=== PATIENT | female | born 1970 | race Caucasian/White ===

== ENCOUNTER 2016-12-26 23:26 | Emergency (ER) | payer OTHER ==
[~2016-12-26] VITALS: Ht 170.2 cm; Wt 85.9 kg
[~2016-12-26 23:26] MED LIST: PROC-14 PO; RIZA10TA24 PO; SERT50TA12 PO; TOPI25TA64 PO
--- OUTSIDE RECORDS SUMMARY | 2016-12-26 23:30 | XMS REPORT | Continuity of Care Document ---
Author Author [facility] Organization [facility] Address Unknown Phone Unavailable Support Name Relationship Address Phone CUATE VASQUEZ DO Caregiver [address] [place] [address] CARLOS GUERRA MD Caregiver [address] [place] [address] [address] [place] [facility] SEGUN PATEL Next Of Kin [address] [place], [place] [id number] Insurance Providers Payer Name Policy Number Subscriber Name Relationship CIGNA [id number] Padmini Patel 18 Self Advance Directives Directive Response Recorded Date/Time Advanced Directives Type None 04/02/14 5:36pm Ordered Resuscitation Status Full Code 04/02/14 4:38pm Chief Complaint and Reason for Visit Chief Complaint OVERDOSE,SUICIDAL IDEATION Reason for Visit Migraine headache Suicidal ideation Overdose Suicidal ideation Suicide attempt by drug ingestion Problems Medical Problems Problem Onset Date Status Migraine headache Unknown Active Migraine headache Unknown Active Migraine headache Unknown Active Suicidal ideation Unknown Active Overdose Unknown Active Suicidal ideation Unknown Active Suicide attempt by drug ingestion Unknown Active Medications Medication Dose Route Sig Days/Qty Instructions Order Date Discontinued Date Status [Maxalt] NEEDED 03/08/10 12/27/12 Discontinued Butalb/Acetaminophen/Caffeine NEEDED 10/03/10 12/27/12 Discontinued Gabapentin 600 Mg PO TWICE A DAY 4 TABS 12/27/12 Active Rizatriptan Benzoate 10 Mg PO NEEDED 02/13/14 Active [Citalopram Hbr20 M1] 20 Mg PO BEDTIME 03/25/14 Active [Ixpyicfvmd73 M2] 25 Mg PO 03/25/14 Active [Estrogen Patch] Unknown Dose 04/02/14 Active Social History Social History Problem Response Recorded Date/Time Smoking Status Former smoker 02/13/2014 8:19am When did patient STOP smoking? 200504/02/2014 5:37pm Hx Substance Use No 04/02/2014 3:48pm Hx Alcohol Use Y BEER MONTHLY 04/02/2014 3:48pm Has the pt used tobacco in the last 12 months No 04/02/2014 5:37pm Query Response Start Date Stop Date Smoking Status Never smoker Hospital Discharge Instructions Instructions: Care Instructions: Reason for Hospitalization: Suicide attempt by overdose I was in the hospital because (patient own words): "I took too many pills" Discharge Diet: Regular Discharge Activity: As tolerated Follow Up Appointments: Pt to be followed by Chris Gordon Condition at time of discharge: Good Condition at time of discharge: Good Condition at time of discharge: Good see patient instructions Care Plan Discharge Patient: Patient Instructions: see patient instructions Plan of Care Discharge Date 04/03/14 5:00pm Disposition 65 TO [facility] Prescriptions See Medications Section Functional Status Query Response Date Recorded Physical Hygiene Self April 03, 2014 4:45pm Disabilities None February 13, 2014 8:19am Devices Used None April 03, 2014 4:45pm Dressing Self April 03, 2014 4:45pm Ambulation Self February 13, 2014 8:19am Diet Self April 03, 2014 4:45pm Mental Status Alert February 13, 2014 8:47am Disabilities None February 13, 2014 8:19am Devices Used None April 03, 2014 4:45pm Physical Hygiene Self April 03, 2014 4:45pm Dressing Self April 03, 2014 4:45pm Ambulation Self February 13, 2014 8:19am Diet Self April 03, 2014 4:45pm Allergies, Adverse Reactions, Alerts Allergen Type Severity Reaction Status Last Updated No Known Allergies NO KNOWN ALLERGIES Active 04/02/14 Immunizations Name Given Type Hx Influenza Vaccination Y 05/25 Historical Hx Pneumococcal Vaccination No Historical Hx Influenza Vaccination Y 05/25 Historical Vital Signs Acute Vital Signs Vital Response Date/Time Temperature (Fahrenheit) 98.2 deg F (96.8 - 99.1) Temperature (Calculated Celsius) 36.52637 degrees C (36.0 - 37.3) Temperature Source Temporal Pulse Rate (adult) 72 bpm (60 - 100) Respiratory Rate 16 breaths/min (10 - 20) O2 Sat by Pulse Oximetry 100 % (90 - 100) Oxygen Delivery Method Room Air Blood Pressure 110/61 mm Hg Blood Pressure Source Automatic Cuff Height 5 ft 7 in Weight 173 lb Body Mass Index 27.0 kg/m^2 Results Test Source Date Result Interp. Ref. Range Comments Acetaminophen Level April 02, 2014 3:30pm < 10 UG/ML L 10-30 TOXIC <4 HR POST INGESTION: >150 MG/L;TOXIC <12 HR POST INGESTION: >50 MG/L Activated Partial Thromboplast Time December 27, 2012 9:53am 30.2 SEC N 24- 36 Alanine Aminotransferase (ALT/SGPT) April 02, 2014 3:30pm 34 U/L N 9- 52 Albumin April 02, 2014 3:30pm 3.7 G/DL N 3.5-5.0 Albumin/Globulin Ratio April 02, 2014 3:30pm 1.5 RATIO N 1.1-2.2 Alcohol, Quantitative April 02, 2014 3:30pm <10 MG/DL - Alkaline Phosphatase April 02, 2014 3:30pm 67 U/L N 38-126 Anion Gap April 03, 2014 4:20am 10 MEQ/L N 5-15 Aspartate Amino Transf (AST/SGOT) April 02, 2014 3:30pm 16 U/L N 14-36 BUN/Creatinine Ratio April 03, 2014 4:20am 10 RATIO N 6-26 Basophils # (Auto) April 03, 2014 4:20am 0.0 T/MM3 N 0-0.2 Basophils (%) (Auto) April 03, 2014 4:20am 0.5 % N 0-2 Blood Urea Nitrogen April 03, 2014 4:20am 9.0 MG/DL DN 7-17 Calcium Level April 03, 2014 4:20am 8.3 MG/DL L 8.4-10.2 Calculated Osmolality April 03, 2014 4:20am 271 MOSM/KG N 261-280 Carbon Dioxide Level April 03, 2014 4:20am 23 MEQ/L N 22-30 Chemistry Specimen Hemolysis April 03, 2014 4:20am 31 H 0-25 0-25: No Hemolysis.26-70: Slight Hemolysis - can falsely elevate K and Urine Protein. 71-285: Moderate Hemolysis - can falsely elevate K, Troponin I, CA 19-9, PTH, CSF GLucose, and Urine Protein, and can falsely decrease Phenytoin. 286-999: Gross Hemolysis - can falsely elevate K, Troponin I, CA 19-9, PTH, CSF Glucose, and Urine Protine, and can falsely decrease Phenytoin. Recommend specimen recollection. Chloride Level April 03, 2014 4:20am 109 MEQ/L H 98-107 Creatinine April 03, 2014 4:20am 0.9 MG/DL N 0.7-1.2 Eosinophils # (Auto) April 03, 2014 4:20am 0.2 T/MM3 N 0-0.5 Eosinophils (%) (Auto) April 03, 2014 4:20am 2.0 % N 0-4 Globulin April 02, 2014 3:30pm 2.5 G/DL N 2.4-3.6 Glomerular Filtration Rate Calc April 03, 2014 4:20am 68 - Glucose Level April 03, 2014 4:20am 89 MG/DL N 65-110 Hematocrit April 03, 2014 4:20am 45.6 % N 36-46 Hemoglobin April 03, 2014 4:20am 15.4 GM/DL N 12-16 Icterus Index April 03, 2014 4:20am < 2 0-7 Immature Granulocyte # (Auto) April 03, 2014 4:20am 0.02 T/MM3 N 0.00- 0.03 Immature Granulocyte % (Auto) April 03, 2014 4:20am 0.2 % N 0.0-0.5 Lab Scanned Report April 02, 2014 4:35pm [facility] [id number] - Lymphocytes # (Auto) April 03, 2014 4:20am 2.5 T/MM3 N 1-4.8 Lymphocytes (%) (Auto) April 03, 2014 4:20am 27.8 % N 23-45 Magnesium Level December 27, 2012 9:53am 2.0 MG/DL N 1.6-2.3 Mean Corpuscular Hemoglobin April 03, 2014 4:20am 29.8 UUG N 26-34 Mean Corpuscular Hemoglobin Concent April 03, 2014 4:20am 33.8 GM/DL N 31-37 Mean Corpuscular Volume April 03, 2014 4:20am 88.2 UM3 N 80-100 Mean Platelet Volume April 03, 2014 4:20am 11.5 UM3 N 9.4-12.4 Monocytes # (Auto) April 03, 2014 4:20am 0.9 T/MM3 H 0-0.8 Monocytes (%) (Auto) April 03, 2014 4:20am 9.6 % H 0-9.0 Neutrophils # (Auto) April 03, 2014 4:20am 5.3 T/MM3 N 1.8-7.7 Neutrophils (%) (Auto) April 03, 2014 4:20am 59.9 % N 33-66 Platelet Count April 03, 2014 4:20am 233 T/MM3 N 130-400 Potassium Level April 03, 2014 4:20am 4.2 MEQ/L N 3.6-5 Prothromb Time International Ratio December 27, 2012 9:53am 0.85 L 0.86-1.10 THERAPUTIC RANGE=2.00-3.00 FOR ANTI-THROMBOSIS THERAPUTIC RANGE=2.50-3.50 FOR IMPLANTED VALVE RDW Standard Deviation April 03, 2014 4:20am 40.1 FL N 36.9-50.2 Red Blood Count April 03, 2014 4:20am 5.17 M/MM3 N 4.00-5.20 Salicylates Level April 02, 2014 3:30pm < 1.0 MG/DL L 2-20 Sodium Level April 03, 2014 4:20am 142 MEQ/L N 134-144 Thyroid Stimulating Hormone (TSH) April 03, 2014 4:20am 0.80 MIU/L N 0.47-4.68 Total Bilirubin April 02, 2014 3:30pm 0.70 MG/DL N 0.20-1.30 Total Protein April 02, 2014 3:30pm 6.2 G/DL L 6.3-8.2 Troponin I April 02, 2014 3:30pm < 0.012 ng/ml 0-0.12 Turbidity April 03, 2014 4:20am < 20 0-20 Urinalysis Comment April 02, 2014 4:15pm Microscopic not ind. - Has specimen been collected/obtained? Y Urine Bilirubin April 02, 2014 4:15pm Negative - Has specimen been collected/obtained? Y Urine Blood April 02, 2014 4:15pm Negative - Has specimen been collected/obtained? Y Urine Collection Type April 02, 2014 4:15pm Cleancatch-midstream - Has specimen been collected/obtained? Y Urine Color April 02, 2014 4:15pm Yellow - Has specimen been collected/obtained? Y Urine Glucose (UA) April 02, 2014 4:15pm Negative - Has specimen been collected/obtained? Y Urine Ketones April 02, 2014 4:15pm Negative - Has specimen been collected/obtained? Y Urine Leukocyte Esterase April 02, 2014 4:15pm Negative - Has specimen been collected/obtained? Y Urine Microscopic Not Indicated March 08, 2010 1:54am Not indicated - Has specimen been collected/obtained? Y Urine Nitrite April 02, 2014 4:15pm Negative - Has specimen been collected/obtained? Y Urine Protein April 02, 2014 4:15pm Negative - Has specimen been collected/obtained? Y Urine Specific [place] April 02, 2014 4:15pm 1.010 L - Has specimen been collected/obtained? Y Urine Turbidity April 02, 2014 4:15pm Clear - Has specimen been collected/obtained? Y Urine Urobilinogen April 02, 2014 4:15pm 0.2 EU/DL - Has specimen been collected/obtained? Y Urine pH April 02, 2014 4:15pm 6.0 - Has specimen been collected/ obtained? Y White Blood Count April 03, 2014 4:20am 8.9 T/MM3 N 4.5-11.0 Procedures No known history of procedures. Encounters Encounter Location Date/Time Discharged Inpatient [facility] 04/02/14 4:47pm Departed Emergency Room [facility] 03/25/14 2:08am Departed Emergency Room [facility] 02/13/14 7:57am Recent Diagnosis Migraine headache Suicidal ideation Overdose Suicidal ideation Suicide attempt by drug ingestion
--- OUTSIDE RECORDS SUMMARY | 2016-12-26 23:30 | XMS REPORT | Continuity of Care Document ---
Author Author [facility] Organization [facility] Address Unknown Phone Unavailable Support Name Relationship Address Phone GIUSEPPE APARICIO MD Caregiver [address] [place] [address] [place] [address] NICOLASAASHLEIGH Caregiver [address] [place] [address] SEGUN PATEL Next Of Kin [address] [place] [address] Insurance Providers Payer Name Policy Number Subscriber Name Relationship [employer]IG[employer] [id number] Padmini Patel 18 Self Advance Directives Directive Response Recorded Date/Time Advanced Directives Type None 03/25/14 3:05am Problems Medical Problems Problem Onset Date Status Migraine headache Unknown Active Migraine headache Unknown Active Migraine headache Unknown Active Medications Medication Dose Route Sig Days/Qty Instructions Order Date Discontinued Date Status [Maxalt] NEEDED 03/08/10 12/27/12 Discontinued Butalb/Acetaminophen/Caffeine NEEDED 10/03/10 12/27/12 Discontinued Gabapentin 600 Mg PO TWICE A DAY 4 TABS 12/27/12 Active Rizatriptan Benzoate 10 Mg PO NEEDED 02/13/14 Active [Citalopram Hbr20 M1] 20 Mg PO BEDTIME 03/25/14 Active [Hxrischnhy17 M2] 25 Mg PO 03/25/14 Active Social History Social History Problem Response Recorded Date/Time Smoking Status Former smoker 02/13/2014 8:19am Hx Substance Use No 03/25/2014 3:25am Hx Alcohol Use Y BEER MONTHLY 03/25/2014 3:25am Has the pt used tobacco in the last 12 months No 12/27/2012 11:00am Query Response Start Date Stop Date Smoking Status Never smoker Hospital Discharge Instructions No hospital discharge instructions. Plan of Care No plan of care. Functional Status Query Response Date Recorded Physical Hygiene Self March 25, 2014 3:25am Disabilities None February 13, 2014 8:19am Devices Used None March 25, 2014 3:25am Dressing Self March 25, 2014 3:25am Ambulation Self February 13, 2014 8:19am Diet Self March 25, 2014 3:25am Mental Status Alert February 13, 2014 8:47am Disabilities None February 13, 2014 8:19am Devices Used None March 25, 2014 3:25am Physical Hygiene Self March 25, 2014 3:25am Dressing Self March 25, 2014 3:25am Ambulation Self February 13, 2014 8:19am Diet Self March 25, 2014 3:25am Allergies, Adverse Reactions, Alerts Allergen Type Severity Reaction Status Last Updated No Known Allergies NO KNOWN ALLERGIES Active 03/25/14 Immunizations Name Given Type Hx Influenza Vaccination Y 05/25 Historical Hx Pneumococcal Vaccination No Historical Hx Influenza Vaccination Y 05/25 Historical Vital Signs Acute Vital Signs Vital Response Date/Time Temperature (Fahrenheit) 97.3 deg F (96.8 - 99.1) Temperature (Calculated Celsius) 36.25303 degrees C (36.0 - 37.3) Pulse Rate (adult) 78 bpm (60 - 100) Respiratory Rate 13 breaths/min (10 - 20) O2 Sat by Pulse Oximetry 99 % (90 - 100) Blood Pressure 133/76 mm Hg Height 5 ft 7 in Weight 165 lb Body Mass Index 25.0 kg/m^2 Results Test Source Date Result Interp. Ref. Range Comments Activated Partial Thromboplast Time December 27, 2012 9:53am 30.2 SEC N 24- 36 Alanine Aminotransferase (ALT/SGPT) December 27, 2012 9:53am 26 U/L N 9-52 Albumin December 27, 2012 9:53am 4.1 G/DL N 3.5-5.0 Albumin/Globulin Ratio December 27, 2012 9:53am 1.5 RATIO N 1.1-2.2 Alkaline Phosphatase December 27, 2012 9:53am 62 U/L N 38-126 Anion Gap December 27, 2012 9:53am 11 MEQ/L N 5-15 Aspartate Amino Transf (AST/SGOT) December 27, 2012 9:53am 17 U/L N 14-36 BUN/Creatinine Ratio December 27, 2012 9:53am 14 RATIO N 6-26 Basophils # (Auto) December 27, 2012 9:53am 0.0 T/MM3 N 0-0.2 Basophils (%) (Auto) December 27, 2012 9:53am 0.4 % N 0-2 Blood Urea Nitrogen December 27, 2012 9:53am 11.0 MG/DL N 7-17 Calcium Level December 27, 2012 9:53am 9.0 MG/DL N 8.4-10.2 Calculated Osmolality December 27, 2012 9:53am 272 MOSM/KG N 261-280 Carbon Dioxide Level December 27, 2012 9:53am 25 MEQ/L N 22-30 Chloride Level December 27, 2012 9:53am 106 MEQ/L N 98-107 Creatinine December 27, 2012 9:53am 0.8 MG/DL N 0.7-1.2 Eosinophils # (Auto) December 27, 2012 9:53am 0.1 T/MM3 N 0-0.5 Eosinophils (%) (Auto) December 27, 2012 9:53am 1.6 % N 0-4 Globulin December 27, 2012 9:53am 2.8 G/DL N 2.4-3.6 Glucose Level December 27, 2012 9:53am 92 MG/DL N 65-110 Hematocrit December 27, 2012 9:53am 46.4 % H 36-46 Hemoglobin December 27, 2012 9:53am 15.7 GM/DL N 12-16 Lymphocytes # (Auto) December 27, 2012 9:53am 3.0 T/MM3 N 1-4.8 Lymphocytes (%) (Auto) December 27, 2012 9:53am 41.1 % N 23-45 Magnesium Level December 27, 2012 9:53am 2.0 MG/DL N 1.6-2.3 Mean Corpuscular Hemoglobin December 27, 2012 9:53am 28.8 UUG N 26-34 Mean Corpuscular Hemoglobin Concent December 27, 2012 9:53am 33.8 GM/DL N 31- 37 Mean Corpuscular Volume December 27, 2012 9:53am 85.1 UM3 N 80-100 Mean Platelet Volume December 27, 2012 9:53am 11.2 UM3 N 9.4-12.4 Monocytes # (Auto) December 27, 2012 9:53am 0.7 T/MM3 N 0-0.8 Monocytes (%) (Auto) December 27, 2012 9:53am 9.6 % H 0-9.0 Neutrophils # (Auto) December 27, 2012 9:53am 3.4 T/MM3 N 1.8-7.7 Neutrophils (%) (Auto) December 27, 2012 9:53am 47.0 % N 33-66 Platelet Count December 27, 2012 9:53am 226 T/MM3 N 130-400 Potassium Level December 27, 2012 9:53am 4.2 MEQ/L N 3.6-5 Prothromb Time International Ratio December 27, 2012 9:53am 0.85 L 0.86-1.10 THERAPUTIC RANGE=2.00-3.00 FOR ANTI-THROMBOSIS THERAPUTIC RANGE=2.50-3.50 FOR IMPLANTED VALVE RDW Standard Deviation December 27, 2012 9:53am 39.3 FL N 36.9-50.2 Red Blood Count December 27, 2012 9:53am 5.45 M/MM3 H 4.00-5.20 Sodium Level December 27, 2012 9:53am 142 MEQ/L N 134-144 Thyroid Stimulating Hormone (TSH) December 27, 2012 9:53am 0.87 MIU/L N 0.47- 4.68 Total Bilirubin December 27, 2012 9:53am 0.70 MG/DL N 0.20-1.30 Total Protein December 27, 2012 9:53am 6.9 G/DL N 6.3-8.2 Troponin I December 27, 2012 9:53am < 0.012 ng/ml 0-0.12 Urine Amphetamines Screen December 27, 2012 3:33pm Negative NG/ML - Urine Barbiturates Screen December 27, 2012 3:33pm Negative NG/ML - Urine Benzodiazepines Screen December 27, 2012 3:33pm Negative NG/ML - Urine Bilirubin December 27, 2012 3:33pm Negative - Has specimen been collected/obtained? Y Urine Blood December 27, 2012 3:33pm Negative - Has specimen been collected/obtained? Y Urine Cocaine Screen December 27, 2012 3:33pm Negative NG/ML - Urine Collection Type December 27, 2012 3:33pm Voided - Has specimen been collected/obtained? Y Urine Color December 27, 2012 3:33pm Yellow - Has specimen been collected/ obtained? Y Urine Glucose (UA) December 27, 2012 3:33pm Negative - Has specimen been collected/obtained? Y Urine Ketones December 27, 2012 3:33pm Negative - Has specimen been collected/obtained? Y Urine Leukocyte Esterase December 27, 2012 3:33pm Negative - Has specimen been collected/obtained? Y Urine Nitrite December 27, 2012 3:33pm Negative - Has specimen been collected/obtained? Y Urine Opiates Screen December 27, 2012 3:33pm Negative NG/ML - Urine Protein December 27, 2012 3:33pm Negative - Has specimen been collected/obtained? Y Urine Specific [place] December 27, 2012 3:33pm 1.010 L - Has specimen been collected/obtained? Y Urine Tricyclic Antidepressants December 27, 2012 3:33pm Negative NG/ML - Urine Turbidity December 27, 2012 3:33pm Clear - Has specimen been collected/obtained? Y Urine Urobilinogen December 27, 2012 3:33pm Normal EU/DL - Has specimen been collected/obtained? Y Urine pH December 27, 2012 3:33pm 7.0 - Has specimen been collected/ obtained? Y White Blood Count December 27, 2012 9:53am 7.3 T/MM3 N 4.5-11.0 Lab Scanned Report December 27, 2012 9:14pm [facility] [id number] - Urine Methadone Screen December 27, 2012 3:33pm Negative NG/ML - Urine Cannabinoids Screen December 27, 2012 3:33pm Negative NG/ML - Glomerular Filtration Rate Calc December 27, 2012 9:53am 79 - Immature Granulocyte # (Auto) December 27, 2012 9:53am 0.02 T/MM3 N 0.00- 0.03 Immature Granulocyte % (Auto) December 27, 2012 9:53am 0.3 % N 0.0-0.5 Urine Microscopic Not Indicated March 08, 2010 1:54am Not indicated - Has specimen been collected/obtained? Y Procedures No known history of procedures. Encounters Encounter Location Date/Time Departed Emergency Room [facility] 03/25/14 2:08am Departed Emergency Room [facility] 02/13/14 7:57am Recent Diagnosis
--- OUTSIDE RECORDS SUMMARY | 2016-12-26 23:31 | XMS REPORT | Referral Summary ---
Author Author [facility] Organization [facility] Address Unknown Phone Unavailable Care Team Providers Care Barometers Calibrator Name Role Phone Radha Mckee Primary Care Physician [phone] Encounter VC Date(s): 10/07/16 - 10/07/16 [facility] [address] [place] [id number] Discharge Diagnosis: Migraine Discharge Disposition: 01-Home or Self Care Attending Physician: Elvis Read PA-C Admitting Physician: Elvis Read PA-C Vital Signs Most recent to 1 oldest [Reference Range]: Temperature Tympanic 36.8 degC [36.6-38.1 degC] (10/07/16 5:55 PM) Peripheral Pulse 83 bpm Rate [60-100 bpm] (10/07/16 5:55 PM) Blood Pressure 148/86 mmHg [90-140/60-90 mmHg] *HI* (10/07/16 5:55 PM) SpO2 97 % (10/07/16 5:55 PM) Problem List Condition Effective Dates Status Health Status Informant Alteration in Active nutrition(Confirmed) 1 Appendicitis, Active acute(Confirmed) Fluid volume Active deficit(Confirmed)2 Headache-Migraines(C Active onfirmed) Headache(Confirmed) Active Hyperlipidemia(Confi Active rmed) Intractable Active headache(Confirmed) Migraine(Confirmed) Active Migraine(Confirmed) Active Obesity(Confirmed) Active patient Migraine with Active patient intractable migraine(Confirmed) 1Problem added automatically by system based on initiation of Alteration in Nutrition Plan of Care 2Problem added automatically by system based on initiation of Fluid Deficit Plan of Care Allergies, Adverse Reactions, Alerts Substance Reaction Severity Status azithromycin Active doxycycline Active traZODone anaphylaxis Active Medications Botox 200 units injection 200 units, IntraMuscular, q3mo, # 1 Each, 0 Refill(s) Start Date: 09/25/15 Status: Ordered cyclobenzaprine 10 mg oral tablet 10 mg 1 tabs, Oral, TID, as needed for spasm, # 30 tabs, 0 Refill(s), Pharmacy: [id number], 1 tabs Oral TID,PRN:as needed for spasm Start Date: 08/10/15 Status: Ordered mirtazapine 30 mg oral tablet See Instructions, TAKE ONE TABLET BY MOUTH AT BEDTIME, # 30 tabs, 2 Refill(s), eRx: [id number] Start Date: 08/19/16 Status: Ordered Miscellaneous DME DME Item 100% FIO2 via 12 L Non-Rebreather Mask for 15 minutes. DX: Migraines Patient to have done at [place] [facility], See Instructions, # 1 Each , 0 Refill(s), other reason (Rx), Supply Start Date: 04/01/14 Status: Ordered naproxen 500 mg oral tablet 500 mg 1 tabs, Oral, BID, # 60 tabs, 2 Refill(s), Pharmacy: [id number], 1 tabs Oral BID Start Date: 08/09/16 Status: Ordered rizatriptan 10 mg oral tablet, disintegrating See Instructions, DISSOLVE ONE TABLET IN MOUTH ONCE DAILY, MAY REPEAT DOSE EVERY 2 HOURS, # 9 tabs, 1 Refill(s), Pharmacy: [facility], DISSOLVE ONE TABLET IN MOUTH ONCE DAILY, MAY REPEAT DOSE EVERY 2 HOURS Start Date: 08/09/16 Status: Ordered topiramate 25 mg oral tablet See Instructions, TAKE TWO TABLETS BY MOUTH ONCE DAILY AT BEDTIME, # 60 tabs, 2 Refill(s), eRx: [id number], TAKE TWO TABLETS BY MOUTH ONCE DAILY AT BEDTIME Start Date: 06/06/16 Status: Ordered Results No data available for this section Immunizations Given and Recorded Vaccine Date Status Refusal Reason influenza virus vaccine, H1N1, inactivat 07/21/09 Given influenza virus vaccine, live 06/11/10 Given Procedures Procedure Date Related Diagnosis Body Site Appendectomy Hysterectomy Social History Social History Type Response Smoking Status Former smoker; Type: Cigarettes; Started at age: 24; Stopped at age: 36 Assessment and Plan Extracted from: Title: migraine Author: Elvis Read PA-C Date: 10/07/16 Assessment/Plan Migraine Was treated with [id number] mgpatient was monitored 20 minutes after the injections; vital signs repeated stable upon discharge. Recommend rest. FU with PCP if not improving, worsening symptoms, or as needed. Patient left in stable condition.
--- OUTSIDE RECORDS SUMMARY | 2016-12-26 23:31 | XMS REPORT | Referral Summary ---
Author Author [facility] Organization [facility] Address Unknown Phone Unavailable Care Team Providers Care Head Of Digital Advertising & Integration Name Role Phone Radha Mckee Primary Care Physician [phone] Encounter Date(s): 07/15/16 - 07/15/[address] [facility] [address] [facility] [address] [place], [place] [address] [place] Discharge Disposition: 01-Home or Self Care Attending Physician: Sage Sales MD Admitting Physician: Sage Sales MD Referring Physician: Sage Sales MD Vital Signs No data available for this section Problem List Condition Effective Dates Status Health Status Informant Alteration in Active nutrition(Confirmed) 1 Appendicitis, Active acute(Confirmed) Fluid volume Active deficit(Confirmed)2 Headache-Migraines(C Active onfirmed) Headache(Confirmed) Active Hyperlipidemia(Confi Active rmed) Intractable Active headache(Confirmed) Migraine(Confirmed) Active Migraine(Confirmed) Active Migraine with Active patient intractable migraine(Confirmed) 1Problem [...] spasm, # 30 tabs, 0 Refill(s), Pharmacy: [id number], 1 tabs Oral TID,PRN:as needed for spasm Start Date: 08/10/15 Status: Ordered mirtazapine 30 mg oral tablet See Instructions, TAKE ONE TABLET BY MOUTH AT BEDTIME, # 30 tabs, 2 Refill(s), eRx: [id number], TAKE ONE TABLET BY MOUTH AT BEDTIME Start Date: 05/02/16 Status: Ordered Miscellaneous DME DME Item 100% FIO2 via 12 L Non-Rebreather Mask for 15 minutes. DX: Migraines Patient to have done at [place] [facility], See Instructions, # 1 Each , 0 Refill(s), other reason (Rx), Supply Start Date: 04/01/14 Status: Ordered naproxen 500 mg oral tablet 500 mg 1 tabs, Oral, BID, # 60 tabs, 2 Refill(s), Pharmacy: [id number], 1 tabs Oral BID Start Date: 01/08/16 Status: Ordered rizatriptan 10 mg oral tablet, disintegrating See Instructions, DISSOLVE ONE TABLET IN MOUTH ONCE DAILY, MAY REPEAT DOSE EVERY 2 HOURS, # 9 tabs, eRx: [id number], DISSOLVE ONE TABLET IN MOUTH ONCE DAILY, MAY REPEAT DOSE EVERY 2 HOURS Start Date: 12/18/15 Status: Ordered topiramate 25 mg oral tablet See Instructions, TAKE TWO TABLETS BY MOUTH ONCE DAILY AT BEDTIME, # 60 tabs, 2 Refill(s), eRx: [id number], TAKE TWO TABLETS BY MOUTH ONCE DAILY AT BEDTIME Start Date: 06/06/16 Status: Ordered Zofran 8 mg oral tablet 1 tabs, Oral, q8hr, as needed for nausea/vomiting, # 10 tabs, 0 Refill(s), Pharmacy: [id number], 1 tabs Oral q8hr,PRN:as needed for nausea/ vomiting Start Date: 03/31/14 Status: Ordered Results No data available for this section Immunizations Vaccine Date Refusal Reason influenza virus vaccine, H1N1, inactivat 07/21/09 influenza virus vaccine, live 06/11/10 Procedures Procedure Date Related Diagnosis Body Site Appendectomy Hysterectomy Social History Social History Type Response Smoking Status Former smoker; Type: Cigarettes; Started at age: 24; Stopped at age: 36 Assessment and Plan No data available for this section
--- OUTSIDE RECORDS SUMMARY | 2016-12-26 23:31 | XMS REPORT | Continuity of Care Document ---
Author Author [facility] Address Unknown Phone Unavailable Allergies Medications Problems Date Dx Coded Attending Type Code Diagnosis Diagnosed By 09/16/2016 ANAMIKA RAMOS G43.909 Migraine, unsp, not intractable, without status migrainosus Procedures Code [place] [address] THER/PROPH/DIAG INJ SC/IM ANAMIKA RAMOS 09/16/2016 [id number] OFFICE/OUTPATIENT VISIT NEW ANAMIKA RAMOS 09/16/2016 [id number] KETOROLAC TROMETHAMINE INJ ANAMIKA RAMOS 09/16/2016 [id number] PROMETHAZINE HCL INJECTION ANAMIKA RAMOS 09/16/2016 Results Encounters ACCT No. Visit Date/Time Discharge Status Pt. Type Provider Facility Loc./Unit Complaint [id number] 09/16/2016 15:00:00 09/16/2016 15 :00:00 DIS Outpatient ANAMIKA RAMOS [facility] OTHER
--- OUTSIDE RECORDS SUMMARY | 2016-12-26 23:31 | XMS REPORT | Continuity of Care Document ---
Author Author [facility] Organization [facility] Address Unknown Phone Unavailable Support Name Relationship Address Phone ASHLEIGH BALDWIN Caregiver [address] [place], [place] [id number] KEAGAN PURDY MD Caregiver [address] [place] [address] [place] [phone] SEGUN PATEL Next Of Kin [address] [place] [address] Insurance Providers Payer Name Policy Number Subscriber Name Relationship MARISELANA [id number] Padmini Patel 18 Self Problems Medical Problems Problem Onset Date Status Migraine headache Unknown Active Medications Medication Dose Route Sig Days/Qty Instructions Order Date Discontinued Date Status [Maxalt] NEEDED 03/08/10 12/27/12 Discontinued Butalb/Acetaminophen/Caffeine NEEDED 10/03/10 12/27/12 Discontinued Gabapentin 300 Mg PO BEDTIME 4 TABS 12/27/12 Active Social History Social History Problem Response Recorded Date/Time Smoking Status Former smoker 02/13/2014 8:19am Hx Alcohol Use Y BEER MONTHLY 02/13/2014 8:19am Has the pt used tobacco in the last 12 months No 12/27/2012 11:00am Query Response Start Date Stop Date Smoking Status Never smoker Hospital Discharge Instructions No hospital discharge instructions. Plan of Care No plan of care. Functional Status Query Response Date Recorded Physical Hygiene Self February 13, 2014 8:19am Disabilities None February 13, 2014 8:19am Devices Used None February 13, 2014 8:19am Dressing Self February 13, 2014 8:19am Ambulation Self February 13, 2014 8:19am Diet Self February 13, 2014 8:19am Mental Status Alert February 13, 2014 8:47am Disabilities None February 13, 2014 8:19am Devices Used None February 13, 2014 8:19am Physical Hygiene Self February 13, 2014 8:19am Dressing Self February 13, 2014 8:19am Ambulation Self February 13, 2014 8:19am Diet Self February 13, 2014 8:19am Allergies, Adverse Reactions, Alerts Allergen Type Severity Reaction Status Last Updated No Known Allergies NO KNOWN ALLERGIES Active 02/13/14 Immunizations Name Given Type Hx Influenza Vaccination Y 05/25 Historical Hx Pneumococcal Vaccination No Historical Hx Influenza Vaccination Y 05/25 Historical Vital Signs Acute Vital Signs Vital Response Date/Time Temperature (Fahrenheit) 98.4 deg F (96.8 - 99.1) Temperature (Calculated Celsius) 36.37731 degrees C (36.0 - 37.3) Pulse Rate (adult) 75 bpm (60 - 100) Respiratory Rate 16 breaths/min (10 - 20) O2 Sat by Pulse Oximetry 98 % (90 - 100) Blood Pressure 113/79 mm Hg Height 5 ft 7 in Weight 176 lb Body Mass Index 27.0 kg/m^2 Results [...] Has specimen been collected/obtained? Y Urine Specific [place] December 27, 2012 3:33pm 1.010 L - [...] Report December 27, 2012 9:14pm [facility]FER[facility] [id number] - Urine Methadone Screen December 27, 2012 [...] Encounters Encounter Location Date/Time Departed Emergency Room [facility] 02/13/14 7:57am Recent Diagnosis
--- OUTSIDE RECORDS SUMMARY | 2016-12-26 23:31 | XMS REPORT | Continuity of Care Document ---
Author Author [facility] Organization [facility] Address Unknown Phone Unavailable Support Name Relationship Address Phone KEAGAN PURDY MD Caregiver [address] [place] [address] [place] [phone] SEGUN PATEL Next Of Kin [address] [place] [id number] Insurance Providers Payer Name Policy Number Subscriber Name Relationship VAMSHI [id number] Padmini Patel 18 Self Advance Directives Directive Response Recorded Date/Time Advanced Directives Type None 05/30/14 9:22pm Chief Complaint and Reason for Visit Chief Complaint Accidental Overdose Reason for Visit [id number] Suicidal ideation Problems Medical Problems Problem Onset Date Status Migraine headache Unknown Active Migraine headache Unknown Active Migraine headache Unknown Active Suicidal ideation Unknown Active Overdose Unknown Active Suicidal ideation Unknown Active Suicide attempt by drug ingestion Unknown Active Migraine headache Unknown Active Medications Medication Dose Route Sig Days/Qty Instructions Order Date Discontinued Date Status [Maxalt] NEEDED 03/08/10 12/27/12 Discontinued Butalb/Acetaminophen/Caffeine NEEDED 10/03/10 12/27/12 Discontinued Rizatriptan Benzoate 10 Mg PO NEEDED 02/13/14 Active [[id number] M2] 25 Mg PO 03/25/14 Active Naproxen 500 Mg PO TWICE A DAY PRN PRN ORDERS 05/30/14 Active Hydroxyzine HCl 25 Mg PO DAILY 60 Qty 05/30/14 Active Promethazine HCl 25 Mg PO DAILY 60 Qty 05/30/14 Active Rizatriptan Benzoate 1 Tab PO EVERY TWO HOURS For HEADACHE 10 Qty 1 PO PRN HEADACHE. MAY REPEAT Q 2 HOURS TO MAX OF 3 TABS IN 05/30/14 Active Social History Social History Problem Response Recorded Date/Time Smoking Status Former smoker 02/13/2014 8:19am Hx Substance Use No 05/30/2014 9:30pm Hx Alcohol Use Y BEER MONTHLY 05/30/2014 9:30pm Has the pt used tobacco in the [...] Gordon Condition at time of discharge: Good DISCHARGE WEIGHT 6#4.2 [place] OR 2840 GRAMS Fair Notify Physician If: You have increased discomfort at incision site. Redness Hot or hardened area Temperature over 101 degress Fahrenheit Increased or foul smelling drainage Chills IF BLEEDING, PAIN OR PROGRESSIVE SWELLING OCCURS TO THE SITE, APPLY PRESSURE AND CALL 911. Condition at time of discharge: Good Good 2.If this dressing starts peeling up slightly, it may be reinforced, if it peels excessively, notify your surgeon's office. 3.You may shower with the dressing in place, but do not submerge in water 4.Do not allow water to seep under the dressing, if it should seep under, remove the dressing and notify your surgeon. Notify Physician If: Call your Surgeon if you have: 1.Chest pain, difficulty breathing, fever>100.5 degrees, chills, heart rate >100, confusion, or persistent nausea/vomitting. 2.Severe pain, swelling, redness, or warmth in either of your legs. 3.During office hours, call [phone] 4. After hours, please call [facility] at [phone], and have the artificial snow making machine operator page your Surgeon IN THE EVENT OF AN EMERGENCY, seek medical care at the nearest Emergency Room Condition at time of discharge: Good Plan of Care Discharge Date 04/03/14 5:00pm Disposition 02 TO [facility] Condition at Discharge Stable Prescriptions See Medications Section Functional Status Query Response Date Recorded Physical Hygiene Self May 30, 2014 9:30pm Disabilities None February 13, 2014 8:19am Devices Used Glasses May 30, 2014 9:30pm Dressing Self May 30, 2014 9:30pm Ambulation Self February 13, 2014 8:19am Diet Self May 30, 2014 9:30pm Mental Status Alert February 13, 2014 8:47am Disabilities None February 13, 2014 8:19am Devices Used Glasses May 30, 2014 9:30pm Physical Hygiene Self May 30, 2014 9:30pm Dressing Self May 30, 2014 9:30pm Ambulation Self February 13, 2014 8:19am Diet Self May 30, 2014 9:30pm Allergies, Adverse Reactions, Alerts Allergen Type Severity Reaction Status Last Updated Azithromycin Allergy Unknown Active 05/30/14 Immunizations Name Given Type Hx Influenza Vaccination Y 05/25 Historical Hx Pneumococcal Vaccination No Historical Hx Influenza Vaccination Y 05/25 Historical Vital Signs Acute Vital Signs Vital Response Date/Time Temperature (Fahrenheit) 98.0 deg F (96.8 - 99.1) Temperature (Calculated Celsius) 36.13977 degrees C (36.0 - 37.3) Pulse Rate (adult) 87 bpm (60 - 100) Respiratory Rate 16 breaths/min (10 - 20) O2 Sat by Pulse Oximetry 99 % (90 - 100) Blood Pressure 120/85 mm Hg Height 5 ft 7 in Weight 179 lb Body Mass Index 28.0 kg/m^2 Results Test Source Date Result Interp. [...] 03, 2014 4:20am 23 MEQ/L N 22-30 Chloride Level April 03, 2014 4:20am 109 MEQ/L H 98-107 Creatinine April 03, 2014 4:20am 0.9 MG/DL N 0.7-1.2 Eosinophils # (Auto) April 03, 2014 4:20am 0.2 T/MM3 N 0-0.5 Eosinophils (%) (Auto) April 03, 2014 4:20am 2.0 % N 0-4 Globulin April 02, 2014 3:30pm 2.5 G/DL N 2.4-3.6 Glucose Level April 03, 2014 4:20am 89 MG/DL N 65-110 Hematocrit April 03, 2014 4:20am 45.6 % N 36-46 Hemoglobin April 03, 2014 4:20am 15.4 GM/DL N 12-16 Lymphocytes # (Auto) April 03, 2014 4:20am [...] 02, 2014 3:30pm < 0.012 ng/ml 0-0.12 Urine Bilirubin April 02, 2014 4:15pm Negative [...] Has specimen been collected/obtained? Y Urine Specific [place] April 02, 2014 4:15pm 1.010 L - [...] 03, 2014 4:20am 8.9 T/MM3 N 4.5-11.0 Chemistry Specimen Hemolysis April 03, 2014 4:20am [...] can falsely decrease Phenytoin. Recommend specimen recollection. Urinalysis Comment April 02, 2014 4:15pm Microscopic not ind. - Has specimen been collected/obtained? Y Lab Scanned Report April 02, 2014 4:35pm REFERENCE LAB [id number] - Turbidity April 03, 2014 4:20am < 20 0-20 Glomerular Filtration Rate Calc April 03, 2014 4:20am 68 - Immature Granulocyte # (Auto) April 03, 2014 4:20am 0.02 T/MM3 N 0.00- 0.03 Immature Granulocyte % (Auto) April 03, 2014 4:20am 0.2 % N 0.0-0.5 Icterus Index April 03, 2014 4:20am < 2 0-7 Urine Microscopic Not Indicated March 08, 2010 1:54am Not indicated - Has specimen been collected/obtained? Y Procedures No known history of procedures. Encounters Encounter Location Date/Time Registered Emergency Room [facility] 05/30/14 7:29pm Discharged Inpatient [facility] 04/02/14 4:47pm Departed Emergency Room [facility] 03/25/14 2:08am Recent Diagnosis
--- OUTSIDE RECORDS SUMMARY | 2016-12-26 23:32 | XMS REPORT | Referral Summary ---
Author Author [facility] Organization [facility] Address Unknown Phone Unavailable Care Team Providers Care Compressed Air Pile Driver Operator Name Role Phone Radha Mckee Primary Care Physician [phone] Encounter [facility] [id number] Date(s): 08/09/16 - 08/09/[address] [facility] [address] [facility] [address] [place], [place] [address] Discharge Diagnosis: Neck pain Discharge Diagnosis: Chronic migraine Discharge Diagnosis: Nausea Discharge Diagnosis: Major depression Discharge Disposition: 01-Home or Self Care Attending Physician: Sage Sales MD Admitting Physician: Sage Sales MD Referring Physician: Sage Sales MD Vital Signs Most recent to 1 oldest [Reference Range]: Peripheral Pulse 72 bpm Rate [60-100 bpm] (08/09/16 9:01 AM) Blood Pressure 102/80 mmHg [90-140/60-90 mmHg] (08/09/16 9:01 AM) Problem List Condition Effective Dates Status Health [...] spasm, # 30 tabs, 0 Refill(s), Pharmacy: [id number], 1 tabs Oral TID,PRN:as needed for spasm Start Date: 08/10/15 Status: Ordered mirtazapine 30 mg oral tablet See Instructions, TAKE ONE TABLET BY MOUTH AT BEDTIME, # 30 tabs, 2 Refill(s), eRx: [id number], TAKE ONE TABLET BY MOUTH AT BEDTIME Start Date: 05/02/16 Status: Ordered Miscellaneous DME DME Item 100% FIO2 via 12 L Non-Rebreather Mask for 15 minutes. DX: Migraines Patient to have done at [place] [facility], See Instructions, # 1 Each , 0 Refill(s), other reason (Rx), Supply Start Date: 04/01/14 Status: Ordered naproxen 500 mg oral tablet 500 mg 1 tabs, Oral, BID, # 60 tabs, 2 Refill(s), Pharmacy: [id number], 1 tabs Oral BID Start Date: 08/09/16 Status: Ordered rizatriptan 10 mg oral tablet, disintegrating See Instructions, DISSOLVE ONE TABLET IN MOUTH ONCE DAILY, MAY REPEAT DOSE EVERY 2 HOURS, # 9 tabs, 1 Refill(s), Pharmacy: [id number], DISSOLVE ONE TABLET IN MOUTH ONCE DAILY, MAY REPEAT DOSE EVERY 2 HOURS Start Date: 08/09/16 Status: Ordered topiramate 25 mg oral tablet See Instructions, TAKE TWO TABLETS BY MOUTH ONCE DAILY AT BEDTIME, # 60 tabs, 2 Refill(s), eRx: [id number], TAKE TWO TABLETS BY MOUTH ONCE DAILY AT BEDTIME Start Date: 06/06/16 Status: Ordered Zofran 8 mg oral tablet 1 tabs, Oral, q8hr, as needed for nausea/vomiting, # 10 tabs, 0 Refill(s), Pharmacy: [id number], 1 tabs Oral q8hr,PRN:as needed [...] 36 Assessment and Plan Extracted from: Title: Ambulatory Patient Education Author: Sage aSles MD Date: 08/09/16 Emergency Medicine Migraine Headache A migraine headache is an intense, throbbing pain on one or both sides of your head. A migraine can last for 30 minutes to several hours. CAUSES The exact cause of a migraine headache is not always known. However, a migraine may be caused when nerves in the brain become irritated and release chemicals that cause inflammation. This causes pain. Certain things may also trigger migraines, such as: Alcohol. Smoking. Stress. Menstruation. Aged cheeses. Foods or drinks that contain nitrates, glutamate, aspartame, or tyramine. Lack of sleep. Chocolate. Caffeine. Hunger. Physical exertion. Fatigue. Medicines used to treat chest pain (nitroglycerine), control pills , estrogen, and some blood pressure medicines. SIGNS AND SYMPTOMS Pain on one or both sides of your head. Pulsating or throbbing pain. Severe pain that prevents daily activities. Pain that is aggravated by any physical activity. Nausea, vomiting, or both. Dizziness. Pain with exposure to bright lights, loud noises, or activity. General sensitivity to bright lights, loud noises, or smells. Before you get a migraine, you may get warning signs that a migraine is coming ( aura). An aura may include: Seeing flashing lights. Seeing bright spots, halos, or zigzag lines. Having tunnel vision or blurred vision. Having feelings of numbness or tingling. Having trouble talking. Having muscle weakness. DIAGNOSIS A migraine headache is often diagnosed based on: Symptoms. Physical exam. A CT scan or MRI of your head. These imaging tests cannot diagnose migraines, but they can help rule out other causes of headaches. TREATMENT Medicines may be given for pain and nausea. Medicines can also be given to help prevent recurrent migraines. HOME CARE INSTRUCTIONS Only take fxqg-arv-aesomqd or prescription medicines for pain or discomfort as directed by your health care provider. The use of long-term narcotics is not recommended. Lie down in a dark, quiet room when you have a migraine. Keep a journal to find out what may trigger your migraine headaches. For example, write down: What you eat and drink. How much sleep you get. Any change to your diet or medicines. Limit alcohol consumption. Quit smoking if you smoke. Get 79 hours of sleep, or as recommended by your health care provider. Limit stress. Keep lights dim if bright lights bother you and make your migraines worse. SEEK IMMEDIATE MEDICAL CARE IF: Your migraine becomes severe. You have a fever. You have a stiff neck. You have vision loss. You have muscular weakness or loss of muscle control. You start losing your balance or have trouble walking. You feel faint or pass out. You have severe symptoms that are different from your first symptoms. MAKE SURE YOU: Understand these instructions. Will watch your condition. Will get help right away if you are not doing well or get worse. This information is not intended to replace advice given to you by your health care provider. Make sure you discuss any questions you have with your health care provider. Document Released: 07/31/2006 Document Revised: 08/21/2015 Document Reviewed: [employer] Interactive Patient Education 2016 [employer] No follow up information was provided. Extracted from: Title: Neurology follow up Author: Sage Sales MD Date: 08/09/16 Assessment/Plan 1. Chronic migraine without aura, intractable, status migrainosus: Continue Botox injections for chronic migraine prophylaxis Continue naproxen and Maxalt as needed We discussed discontinuing Topamax and only restarting it and the Botox wears off which is typically 2 months after she receives her injections. We discussed magnesium oxide and she can take [id number] milligrams twice a day every day. 2. Neck pain: Physical therapy eval and treat Her most recent severe headache seems to have originated from her neck We will monitor for improvement of her neck pain and headaches after physical therapy 3. Nausea: Continue Zofran when necessary 4. Major depression: Her stress level and depression increased a few months ago after going through a divorce but is now much better. During the period of stress, her headaches worsened but now has come down again after her stress level has been reduced. Time spent with the patient: 25min with greater than 50% of the office visit spent in counseling the patient, coordination of care, reviewing diagnostic studies, treatment options, follow up plan, and answering the patient's questions. Return to clinic in4 months
--- OUTSIDE RECORDS SUMMARY | 2016-12-26 23:32 | XMS REPORT | Continuity of Care Document ---
Author Author [facility] Organization [facility] Address Unknown Phone Unavailable Support Name Relationship Address Phone ALPHONSO SALGADO MD Caregiver [address] [place] [address] Unavailable RUBA SULLIVAN Caregiver [address] [place] [address] Unavailable CLAUDETTE GREEN Next Of Kin [address] [place], [place] [phone] Insurance Providers Guarantor Padmini Patel Address [address] [place] [id number] Email [email or web address] Payer CIGNA Policy Number [id number] Subscriber's Name Padmini Patel Relationship 18 Self Group Number [id number] Chief Complaint and Reason for Visit Chief Complaint Headache Reason for Visit Atypical migraine Problems Active Problems Medical Problem Onset Date Status Atypical migraine Unknown Acute Migraine headache Unknown Chronic Migraine headache Unknown Acute Migraine headache Unknown Acute Migraine headache Unknown Acute Overdose Unknown Acute Suicidal ideation Unknown Acute Suicidal ideation Unknown Acute Suicide attempt by drug ingestion Unknown Acute Past Problems Medical Problem Onset Date Migraine headache Unknown Medications Current Home Medications Medication Dose Units Route Directions Days Qty Instructions Start Date Prochlorperazine Maleate (Compazine) 10 Mg Tablet 10 Mg Oral Four Times Daily for N/V/Pinzon 30 Tablet 08/02/16 Rizatriptan Benzoate (Maxalt) 10 Mg Tablet 1 Tab Oral Every Two Hours for Headache 10 Tablet 1 PO PRN HEADACHE. MAY REPEAT Q 2 HOURS TO MAX OF 3 TABS IN 24 HOURS. 05/30/14 Sertraline Hcl (Sertraline) 50 Mg Tablet 50 Mg Oral Qd 05/10/16 Topiramate 25 Mg Tablet 25 Mg Oral Qd 05/10/16 Past Home Medications Medication Directions Ordered Status Butalb/Acetaminophen/Caffeine (Zebutal Capsule) 1 Cap Capsule, As Needed 03/07 Discontinued Maxalt , As Needed 03/08/10 Discontinued Social History Social History Problem Response Recorded Date/Time Onset Date Status Chewing Tobacco Status No 08/02/2016 12:53am Not Applicable Not Applicable Hx Substance Use No 08/02/2016 12:53am Not Applicable Not Applicable Hx Alcohol Use Y ON OCCASION 08/02/2016 12:53am Not Applicable Not Applicable Has the pt used tobacco in the last 12 months No 04/02/2014 5:37pm Not Applicable Not Applicable Tobacco Usage none 04/02/2014 5:42pm Not Applicable Not Applicable Query Response Start Date Stop Date Smoking Status Former smoker Hospital Discharge Instructions No hospital discharge instructions. Plan of Care Discharge Date 08/02/16 3:53am Disposition 01 DISCHARGED HOME, SELF-CARE Condition at Discharge Improved Instructions/Education Provided Migraine -- Adult Prescriptions See Medication Section Referrals RUBA SULLIVAN Radha Address: [address] [place] [address] [address] [place], [place] [id number] Additional Instructions/Education Take your routine medications as needed Compazine 10 mg, one tablet 4 times daily as needed for nausea or headache Care Plan and Goals Physician Care Plan Problem: Atypical migraine headache Goal: Follow up with primary care provider Instructions: Take medications and follow care plan as discussed/written Take your routine medications as needed Compazine 10 mg, one tablet 4 times daily as needed for nausea or headache Functional Status No functional status results. Allergies, Adverse Reactions, Alerts Allergen Type Severity Reaction Status Last Updated Azithromycin Allergy Unknown Active 05/10/16 Immunizations Query Response on File Recorded Date/Time Hx Influenza Vaccination No 05/11/15 7:45pm Hx Pneumococcal Vaccination No 05/11/15 7:45pm Hx Influenza Vaccination No 05/11/15 7:45pm Influenza Vaccine Hx NONE 08/02/16 12:53am Vital Signs Acute Vital Signs Vital Response Date/Time Temperature (Fahrenheit) 98.6 deg F (96.8 - 99.1) 08/02/2016 12:48am Temperature (Calculated Celsius) 37.55837 degrees C (36.0 - 37.3) 08/02/2016 12:48am Pulse Rate (adult) 76 bpm (60 - 100) 08/02/2016 3:53am Respiratory Rate 15 breaths/min (10 - 20) 08/02/2016 3:53am O2 Sat by Pulse Oximetry 100 % (90 - 100) 08/02/2016 3:53am Blood Pressure 120/75 mm Hg 08/02/2016 3:53am Height (Feet) 5 feet 08/02/2016 12:48am Height (Inches) 6.00 inches 08/02/2016 12:48am Weight (Kilograms) 85.000 kg 08/02/2016 12:48am Body Mass Index (BMI) 30.0 08/02/2016 12:48am Results No known relevant diagnostic tests, laboratory data and/or discharge summary. Procedures Procedure Status Date Provider(s) THER/PROPH/DIAG INJ SC/IM Completed 05/10/16 THER/PROPH/DIAG INJ SC/IM Completed 05/10/16 THER/PROPH/DIAG INJ SC/IM Completed 05/10/16 THER/PROPH/DIAG INJ SC/IM Completed 05/10/16 EMERGENCY DEPT VISIT Completed 05/10/16 [id number]"INJECTION, MEPERIDINE HYDROCHLORIDE, PER 100 MG" Completed 05/10/16 [id number]"INJECTION, PROMETHAZINE HCL, UP TO 50 MG" Completed 05/10/16 [id number]"INJECTION, METHYLPREDNISOLONE SODIUM SUCCINATE, UP TO Completed 003"INJECTION, MAGNESIUM SULFATE, PER 500 MG" Completed 05/10/16 Encounters Encounter Location Arrival/Admit Date Discharge/Depart Date Attending Provider Registered Emergency Room [facility] 08/02/16 12:38am ALPHONSO SALGADO MD Departed Emergency Room [facility] 05/10/16 6:35pm 05/10/16 9: 11pm MAURILIO BOSCH DO Recent Diagnosis
--- OUTSIDE RECORDS SUMMARY | 2016-12-26 23:32 | XMS REPORT ---
Author Author [facility] Organization [facility] Address [address] [place], [place] [address] Phone [phone] Summary purpose CCDA Sent to [facility] Chief Complaint and Reason for Visit No authorized Reason for Visit (Admitting Diagnosis) is available for this visit. Problem list No authorized problems tracked for continuity of care are available for this visit. Encounters No authorized problems tracked for encounter diagnoses are available for this visit. Medications No medications recorded for this patient visit Allergies, adverse reactions, alerts No allergy information is available for this patient. Immunizations No immunizations recorded for this patient visit Relevant diagnostic tests and/or laboratory data No authorized results are available for this patient visit History of procedures No procedures recorded for this patient visit. Functional status No functional or cognitive status observations are available for this visit. Vital signs No authorized vital signs are available for this visit. Social history No Social History or smoking status observations were recorded for this visit. ( Unknown if ever smoked.) Treatment Plan No treatment plan text is available for this visit. Hospital discharge instructions No discharge instruction text is available for this visit.
[2016-12-26 23:46] VITALS: RESP 12; TEMP 97.5; Ht 170.2 cm; Wt 85.9 kg
--- NOTE | 2016-12-27 00:02 | ERPDOC ---
Departure Disposition Decision Date: December 27, 2016 Disposition Decision Time: 00:31 Disposition: 01 DISCHARGED HOME, SELF-CARE Impression Impression Impression: Primary Impression: Migraine headache Qualified Codes: G43.009 - Migraine without aura, not intractable, without status migrainosus Severity: Moderate Condition: Improved Seen By: Mid-level only Referrals: RUBA SULLIVAN (Family) Patient Instructions: Migraine Headache (ED) Problems/Meds/Labs Reviewed?: Yes Medications reviewed and manag: Yes Additional Instructions: Rest in dark, quiet room. Avoid any migraine triggers. If your symptoms return or persist follow with your PCP or neurologist. Follow treatment plan. Follow up care ordered?: Yes Mental Status: Alert, Oriented HPI - Headache General Chief Complaint: Headache Stated Complaint: MIGRAINE Time Seen by Provider: 00:02 Source: patient HPI - Headache Initial Comments 46 YO F presents to ED with headache consistent with her usual migraine DAVIS that started today at 1400. Has taken OTC Aleve and a medication that she got from [place] (which contains codeine and acetaminophen). Admits nausea and phono/ photophobia. Denies vomiting, blurred vision or ataxia. Patient's neurologist called and spoke with Dr. Contreras requesting patient receive phenergan and dermerol. Pain Scale: Now: 10/10 Severity/Quality: constant, throbbing Location: frontal (bialteral) Associated Symptoms: nausea/vomiting, DENIES: confusion, facial pain, fatigue, fever/chills, flushing, nasal congestion, nasal drainage, numbness in legs/feet , other (ataxia), seizures, stiff neck, vision changes, weakness Allergies: Coded Allergies: No Known Allergies (Unverified , 12/27/16) Past History Past Medical History Metabolic: DENIES: diabetes Cardiac: DENIES: angina Hx Echocardiogram: No Respiratory: DENIES: asthma GI: DENIES: ulcers Female: DENIES: renal insufficiency Neurological: headaches, migraines Musculoskeletal: neck pain Psychological: DENIES: depression Surgical History General: appendix, other Reproductive/: hysterectomy Family History Family PMH: FOUND: [place], cancer, migraines Vaccines Hx Influenza Vaccination: No Hx Pneumococcal Vaccination: No Social History Does patient use chewing tobac: No Second Hand Exposure: No Substance Use Type: does not use Alcohol Intake: none Sexuality: male partner Review of Systems Constitutional Constitutional: DENIES: chills, dizziness, fever, weakness Eyes General: photophobia, DENIES: erythema, exudate Lids/Accessories: DENIES: erythema, swelling ENMT Ears: DENIES: pain Sinuses: DENIES: congestion, rhinorrhea Mouth/Throat: DENIES: sore throat Cardiovascular Cardiac: DENIES: chest pain, murmur Rhythm/Rate: DENIES: palpitations Pulmonary Respiratory: DENIES: cough, dyspnea GI Upper Abdomen: nausea, DENIES: pain, vomiting Lower Abdomen: DENIES: diarrhea, pain General: DENIES: dysuria, pain Musculoskeletal General: DENIES: joint pain, pain, tenderness Integumentary Skin: DENIES: color change, itching, rash Neurological General: headache, see HPI, DENIES: ataxia, change in strength, numbness, paralysis/paresis, weakness Psychiatric Psychiatric: DENIES: anxiety, depression, nervousness Physical Exam General General Nourishment: well nourished, well developed, no acute distress, adult Vitals and Pain First Documented Vital Signs Date Time Temp Pulse Resp B/P Pulse Ox O2 Delivery O2 Flow Rate FiO2 12/27/16 00:00 86 146/84 96 Room Air Weight: Kilograms: Height (feet): 5 Height (inches): 6.00 Triage Pain Scale: Eyes (brief) Eyes Brief: found: EOMI, PERRL ENMT (brief) ENMT Brief: FOUND: TM clear, TM good light reflex, mucosa moist, NOT FOUND: nasal exudate, nasal swelling, pharnyx erythema Neck (brief) Neck: FOUND: trachea midline, NOT FOUND: adenopathy, spasm, tenderness, thyromegaly Respiratory (brief) Respiratory: FOUND: clear all coates, equal bilaterally, symmetrical Cardiovascular (brief) Cardiac: FOUND: regular rate, regular rhythm Abdomen (brief) Abdominal Brief: FOUND: bowel normo active x4, soft, NOT FOUND: distended, tender Musculoskeletal (brief) Musculoskeletal Brief: NOT FOUND: deformity, tenderness Integumentary (brief) Integumentary Brief: FOUND: dry, pink, warm Neurologic (brief) Neurological Brief: FOUND: CN w/o gross def to obs Neurologic Mental Status: FOUND: alert, oriented Cranial Nerves: NOT FOUND: facial asymmetry Motor : Motor Side: bilateral Motor Location: foot extension, foot flexion, mine car repairer strength Motor Degree: 5 Sensation: FOUND: soft touch intact x4 ext Cerebellar: FOUND: tandem walk DTR's : DTR Side: bilateral DTR Location: Triceps, Patellar DTR Grade: 2+ Psychiatric (brief) Psychiatric Brief: FOUND: normal affect Differential Diagnoses Considering: Cervical Strain, Headache - Migraine, Headache - Tension/Muscle, Increased ICP, Sinusitis - Sphenoid, Sinusitis - Frontal, Viral Syndrome Progress Results/Orders Orders Procedure Category Date Status Time Promethazine PHA 12/27/16 Complete (Phenergan) 00:15 Meperidine (Demerol) PHA 12/27/16 Complete 00:15 Medications Current ED Medications Promethazine HCl (Phenergan) 25 mg O ONCE IM Last administered on 12/27/16 00 :26; Start 12/27/16 at 00:15; Stop 12/27/16 at 00:16; Status DC Meperidine HCl (Demerol) 50 mg O ONCE IM Last administered on 12/27/16 00:26 ; Start 12/27/16 at 00:15; Stop 12/27/16 at 00:16; Status DC Progress Progress Patient reports improving headache with phenergan and dermerol. Patient request to go home at this time before medication completely takes affect. Patient is sent home improved. Patient verbalized understanding of treatment plan, follow up with PCP and return precautions. SCOTTY LEONARDO APRN December 27, 2016 00:02
[2016-12-27] MEDS ORDERED: MIRT7.5T11 PO (00:06)
[2016-12-27] MEDS ORDERED: NAPR500T3 PO (00:06)
--- NOTE | 2016-12-27 00:07 | NUR ---
PROVIDER ROSANA LEONARDO SERVICE WORKER HELPER IN ROOM AT THIS TIME.
[2016-12-27] MEDS ORDERED: PROMETHAZINE 25 MG INJECTION IM ONE (00:15)
[2016-12-27] MEDS ORDERED: MEPERIDINE 100 mg/ml VIAL IM ONE (00:15)
[2016-12-27 00:30] VITALS: BP 160/89; PULSE 86; O2SAT 97
--- OUTSIDE RECORDS SUMMARY | 2016-12-27 00:45 | XMS REPORT | Continuity of Care Document ---
Author Author [facility] Organization [facility] Address Unknown Phone Unavailable Support Name Relationship Address Phone ASHLEIGH BALDWIN Caregiver [address] [place], [place] [phone] KEAGAN PURDY MD Caregiver [address] [place] [address] [place] [phone] SEGUN PATEL Next Of Kin [address] [place] [address] Insurance Providers Payer Name Policy Number Subscriber Name Relationship MARISELANA [id number] Padmini Patel 18 Self Problems Medical Problems [...] F (96.8 - 99.1) Temperature (Calculated Celsius) 36.47311 degrees C (36.0 - 37.3) Pulse Rate [...] Has specimen been collected/obtained? Y Urine Specific [place] December 27, 2012 3:33pm 1.010 L - [...] Report December 27, 2012 9:14pm REFERENCE LAB [id number] - Urine Methadone Screen December 27, 2012 [...] Encounters Encounter Location Date/Time Departed Emergency Room [facility] 02/13/14 7:57am Recent Diagnosis
--- OUTSIDE RECORDS SUMMARY | 2016-12-27 00:45 | XMS REPORT | Continuity of Care Document ---
Author Author [facility] Organization [facility] Address Unknown Phone Unavailable Support Name Relationship Address Phone CUATE VASQUEZ DO Caregiver [address] [place] [address] CARLOS GUERRA MD Caregiver [address] [place] [address] [address] [place] [facility] SEGUN PATEL Next Of Kin [address] [place], [place] [id number] Insurance Providers Payer Name Policy Number Subscriber Name Relationship CIGNA [id number] Padmini Patel 18 Self Advance Directives Directive [...] M1] 20 Mg PO BEDTIME 03/25/14 Active [[id number] M2] 25 Mg PO 03/25/14 Active [Estrogen [...] F (96.8 - 99.1) Temperature (Calculated Celsius) 36.32619 degrees C (36.0 - 37.3) Temperature Source [...] Report April 02, 2014 4:35pm REFERENCE LAB [id number] - Lymphocytes # (Auto) April 03, 2014 [...] Has specimen been collected/obtained? Y Urine Specific [place] April 02, 2014 4:15pm 1.010 L - [...] procedures. Encounters Encounter Location Date/Time Discharged Inpatient [facility] 04/02/14 4:47pm Departed Emergency Room [facility] 03/25/14 2:08am Departed Emergency Room [facility] 02/13/14 7:57am Recent Diagnosis Migraine headache Suicidal ideation Overdose Suicidal ideation Suicide attempt by drug ingestion
--- OUTSIDE RECORDS SUMMARY | 2016-12-27 00:45 | XMS REPORT | Continuity of Care Document ---
Author Author [facility] Organization [facility] Address Unknown Phone Unavailable Support Name Relationship Address Phone GIUSEPPE APARICIO MD Caregiver [address] [place] [address] [place] [address] NICOLASAASHLEIGH Caregiver [address] [place] [address] SEGUN PATEL Next Of Kin [address] [place] [address] Insurance Providers Payer Name Policy Number Subscriber Name Relationship CIGNA [id number] Padmini Patel 18 Self Advance Directives Directive [...] M1] 20 Mg PO BEDTIME 03/25/14 Active [[id number] M2] 25 Mg PO 03/25/14 Active Social [...] F (96.8 - 99.1) Temperature (Calculated Celsius) 36.67772 degrees C (36.0 - 37.3) Pulse Rate [...] Has specimen been collected/obtained? Y Urine Specific [place] December 27, 2012 3:33pm 1.010 L - [...] Report December 27, 2012 9:14pm REFERENCE LAB [id number] - Urine Methadone Screen December 27, 2012 [...] Encounters Encounter Location Date/Time Departed Emergency Room [facility] 03/25/14 2:08am Departed Emergency Room [facility] 02/13/14 7:57am Recent Diagnosis
--- OUTSIDE RECORDS SUMMARY | 2016-12-27 00:46 | XMS REPORT | Continuity of Care Document ---
Author Author [facility] Address Unknown Phone Unavailable Allergies Medications Problems Date Dx Coded Attending Type Code Diagnosis Diagnosed By 09/16/2016 ANAMIKA RAMOS G43.909 Migraine, unsp, not intractable, without status migrainosus Procedures Code [place] [address] THER/PROPH/DIAG INJ SC/IM ANAMIKA RAMOS 09/16/2016 55028 OFFICE/OUTPATIENT VISIT NEW ANAMIKA RAMOS 09/16/2016 [id number] KETOROLAC TROMETHAMINE INJ ANAMIKA RAMOS 09/16/2016 J2550 PROMETHAZINE HCL INJECTION ANAMIKA RAMOS 09/16/2016 Results Encounters ACCT No. Visit Date/Time Discharge Status Pt. Type Provider Facility Loc./Unit Complaint [id number] 09/16/2016 15:00:00 09/16/2016 15 :00:00 DIS Outpatient ANAMIKA RAMOS [facility] OTHER
--- OUTSIDE RECORDS SUMMARY | 2016-12-27 00:47 | XMS REPORT | Continuity of Care Document ---
Author Author [facility] Organization [facility] Address Unknown Phone Unavailable Support Name Relationship Address Phone KEAGAN PURDY MD Caregiver [address] [place] [address] [place] [phone] SEGUN PATEL Next Of Kin [address] [place] [address] Insurance Providers Payer Name Policy Number Subscriber Name Relationship VAMSHI [id number] Padmini Patel 18 Self Advance Directives Directive Response Recorded Date/Time Advanced Directives Type None 05/30/14 9:22pm Chief Complaint and Reason for Visit Chief Complaint Accidental Overdose Reason for Visit [id number] Suicidal ideation Problems Medical Problems Problem Onset [...] Benzoate 10 Mg PO NEEDED 02/13/14 Active [[id number] M2] 25 Mg PO 03/25/14 Active Naproxen [...] of your legs. 3.During office hours, call [phone] 4. After hours, please call [facility] at [phone], and have the crawler tractor operator page your Surgeon IN THE EVENT OF AN EMERGENCY, seek medical care at the nearest Emergency Room Condition at time of discharge: Good Plan of Care Discharge Date 04/03/14 5:00pm Disposition [address] [facility] Condition at Discharge Stable Prescriptions See Medications [...] F (96.8 - 99.1) Temperature (Calculated Celsius) 36.39448 degrees C (36.0 - 37.3) Pulse Rate [...] Has specimen been collected/obtained? Y Urine Specific [place] April 02, 2014 4:15pm 1.010 L - [...] Report April 02, 2014 4:35pm REFERENCE LAB [id number] - Turbidity April 03, 2014 4:20am < [...] Encounters Encounter Location Date/Time Registered Emergency Room [facility] 05/30/14 7:29pm Discharged Inpatient [facility] 04/02/14 4:47pm Departed Emergency Room [facility] 03/25/14 2:08am Recent Diagnosis
--- NOTE | 2016-12-27 00:54 | NUR ---
DEPART PT IS DISCHARGED AT THIS TIME, INSTRUCTIONS ARE REVIEWED AND UNDERSTANDING IS VOICED. PT LEAVES AMBULATORY.
[2016-12-27] MEDS ORDERED: TOPI25TA64 PO (13:33)
[2016-12-27] MEDS ORDERED: RIZA10TA24 PO (15:43)
== END 2016-12-27 00:54 | disposition home or self-care (01) ==
LOC: ED 23:26
DX: G43.009 Migraine without aura, not intractable, without status migrainosus (principal)
CPT/HCPCS: 96372; 99283; J2175; J2550

== ENCOUNTER 2016-12-27 13:01 | Emergency (ER) | payer OTHER ==
[~2016-12-27] VITALS: Ht 170.2 cm; Wt 85.3 kg
[~2016-12-27 13:01] MED LIST changes: +MIRT7.5T11 PO; +NAPR500T3 PO
--- OUTSIDE RECORDS SUMMARY | 2016-12-27 13:06 | XMS REPORT | Continuity of Care Document ---
Author Author [facility] Organization [facility] Address Unknown Phone Unavailable Support Name Relationship Address Phone CUATE VASQUEZ DO Caregiver [address] [place] [address] CARLOS GUERRA MD Caregiver [address] [place] [address] [address] [place] [facility] SEGUN PATEL Next Of Kin [address] [place], [place] [phone] Insurance Providers Payer Name Policy Number Subscriber Name Relationship CIGNA [id number] Padmini Patel 18 Self Advance Directives Directive [...] M1] 20 Mg PO BEDTIME 03/25/14 Active [[id number] M2] 25 Mg PO 03/25/14 Active [Estrogen [...] F (96.8 - 99.1) Temperature (Calculated Celsius) 36.34015 degrees C (36.0 - 37.3) Temperature Source [...] Report April 02, 2014 4:35pm REFERENCE LAB [id number] - Lymphocytes # (Auto) April 03, 2014 [...] Has specimen been collected/obtained? Y Urine Specific [place] April 02, 2014 4:15pm 1.010 L - [...] procedures. Encounters Encounter Location Date/Time Discharged Inpatient [facility] 04/02/14 4:47pm Departed Emergency Room [facility] 03/25/14 2:08am Departed Emergency Room [facility] 02/13/14 7:57am Recent Diagnosis Migraine headache Suicidal ideation Overdose Suicidal ideation Suicide attempt by drug ingestion
--- OUTSIDE RECORDS SUMMARY | 2016-12-27 13:06 | XMS REPORT | Continuity of Care Document ---
Author Author [facility] Organization [facility] Address Unknown Phone Unavailable Support Name Relationship Address Phone GIUSEPPE APARICIO MD Caregiver [address] [place] [address] [place] [address] NICOLASAASHLEIGH Caregiver [address] [place] [address] SEGUN PATEL Next Of Kin [address] [place] [address] Insurance Providers Payer Name Policy Number Subscriber Name Relationship CIGNA [id number] Padmini Patel 18 Self Advance Directives Directive [...] M1] 20 Mg PO BEDTIME 03/25/14 Active [[id number] M2] 25 Mg PO 03/25/14 Active Social [...] F (96.8 - 99.1) Temperature (Calculated Celsius) 36.08275 degrees C (36.0 - 37.3) Pulse Rate [...] Has specimen been collected/obtained? Y Urine Specific [place] December 27, 2012 3:33pm 1.010 L - [...] Report December 27, 2012 9:14pm REFERENCE LAB [id number] - Urine Methadone Screen December 27, 2012 [...] Encounters Encounter Location Date/Time Departed Emergency Room [facility] 03/25/14 2:08am Departed Emergency Room [facility] 02/13/14 7:57am Recent Diagnosis
--- OUTSIDE RECORDS SUMMARY | 2016-12-27 13:06 | XMS REPORT | Continuity of Care Document ---
Author Author [facility] Organization [facility] Address Unknown Phone Unavailable Support Name Relationship Address Phone ASHLEIGH BALDWIN Caregiver [address] [place], [place] [phone] KEAGAN PURDY MD Caregiver [address] [place] [address] [place] [phone] SEGUN PATEL Next Of Kin [address] [place] [address] Insurance Providers Payer Name Policy Number Subscriber Name Relationship MARISELANA [id number] Padmini Patel 18 Self Problems Medical Problems [...] F (96.8 - 99.1) Temperature (Calculated Celsius) 36.10649 degrees C (36.0 - 37.3) Pulse Rate [...] Has specimen been collected/obtained? Y Urine Specific [place] December 27, 2012 3:33pm 1.010 L - [...] Report December 27, 2012 9:14pm REFERENCE LAB [id number] - Urine Methadone Screen December 27, 2012 [...] Encounters Encounter Location Date/Time Departed Emergency Room [facility] 02/13/14 7:57am Recent Diagnosis
--- OUTSIDE RECORDS SUMMARY | 2016-12-27 13:07 | XMS REPORT | Continuity of Care Document ---
Author Author [facility] Organization [facility] Address Unknown Phone Unavailable Support Name Relationship Address Phone KEAGAN PURDY MD Caregiver [address] [place] [address] [place] [phone] SEGUN PATEL Next Of Kin [address] [place] [address] Insurance Providers Payer Name Policy Number Subscriber Name Relationship VAMSHI [id number] Padmini Patel 18 Self Advance Directives Directive Response Recorded Date/Time Advanced Directives Type None 05/30/14 9:22pm Chief Complaint and Reason for Visit Chief Complaint Accidental Overdose Reason for Visit [id number] Suicidal ideation Problems Medical Problems Problem Onset [...] Benzoate 10 Mg PO NEEDED 02/13/14 Active [[id number] M2] 25 Mg PO 03/25/14 Active Naproxen [...] of your legs. 3.During office hours, call [phone] 4. After hours, please call [facility] at [phone], and have the orange picker machine operator page your Surgeon IN THE EVENT OF AN EMERGENCY, seek medical care at the nearest Emergency Room Condition at time of discharge: Good Plan of Care Discharge Date 04/03/14 5:00pm Disposition 02 TO [facility] Condition at Discharge Stable Prescriptions See Medications [...] F (96.8 - 99.1) Temperature (Calculated Celsius) 36.86571 degrees C (36.0 - 37.3) Pulse Rate [...] Has specimen been collected/obtained? Y Urine Specific [place] April 02, 2014 4:15pm 1.010 L - [...] Report April 02, 2014 4:35pm REFERENCE LAB [id number] - Turbidity April 03, 2014 4:20am < [...] Encounters Encounter Location Date/Time Registered Emergency Room [facility] 05/30/14 7:29pm Discharged Inpatient [facility] 04/02/14 4:47pm Departed Emergency Room [facility] 03/25/14 2:08am Recent Diagnosis
--- OUTSIDE RECORDS SUMMARY | 2016-12-27 13:07 | XMS REPORT | Continuity of Care Document ---
Author Author [facility] Address Unknown Phone Unavailable Allergies Medications Problems Date Dx Coded Attending Type Code Diagnosis Diagnosed By 09/16/2016 ANAMIKA RAMOS G43.909 Migraine, unsp, not intractable, without status migrainosus Procedures Code [place] [address] THER/PROPH/DIAG INJ SC/IM ANAMIKA RAMOS 09/16/2016 14740 OFFICE/OUTPATIENT VISIT NEW ANAMIKA RAMOS 09/16/2016 J1885 KETOROLAC TROMETHAMINE INJ ANAMIKA RAMOS 09/16/2016 J2550 PROMETHAZINE HCL INJECTION ANAMIKA RAMOS 09/16/2016 Results Encounters ACCT No. Visit Date/Time Discharge Status Pt. Type Provider Facility Loc./Unit Complaint [id number] 09/16/2016 15:00:00 09/16/2016 15 :00:00 DIS Outpatient ANAMIKA RAMOS [facility] OTHER
--- OUTSIDE RECORDS SUMMARY | 2016-12-27 13:08 | XMS REPORT | Continuity of Care Document ---
Author Author [facility] Organization [facility] Address Unknown Phone Unavailable Support Name Relationship Address Phone ALPHONSO SALGADO MD Caregiver [address] [place] [address] Unavailable RUBA SULLIVAN Caregiver [address] [place] [address] Unavailable CLAUDETTE GREEN Next Of Kin [address] [place], [place] [id number] Insurance Providers Guarantor Padmini Patel Address [address] [place] [address] Email [email or web address] Payer [employer]IG[employer] Policy Number [id number] Subscriber's Name Padmini Patel Relationship 18 Self Group Number [id number] Advance Directives Directive Response Recorded Date/Time Advanced Directives Type None 12/26/16 11:46pm Chief Complaint and Reason for Visit Chief Complaint Headache Reason for Visit Migraine headache Problems Active Problems Medical Problem Onset Date Status Migraine headache Unknown Chronic Migraine headache Unknown Acute Migraine headache Unknown Acute Overdose Unknown Acute Suicidal ideation Unknown Acute Suicidal ideation Unknown Acute Suicide attempt by drug ingestion Unknown Acute Past Problems Medical Problem Onset Date Atypical migraine Unknown Migraine headache Unknown Migraine headache Unknown Medications Current Home Medications Medication Dose Units Route Directions Days Qty Instructions Start Date Mirtazapine 7.5 Mg Tablet Unknown Dose Oral Bedtime 12/27/16 Naproxen 500 Mg Tablet 1 Tab Oral As Needed as needed for Pain Rizatriptan Benzoate (Maxalt) 10 Mg Tablet 1 Tab Oral Every Two Hours for Headache 10 Tablet 1 PO PRN HEADACHE. MAY REPEAT Q 2 HOURS TO MAX OF 3 TABS IN 24 HOURS. 05/30/14 Past Home Medications Medication Directions Ordered Status Butalb/Acetaminophen/Caffeine (Zebutal Capsule) 1 Cap Capsule, As Needed 03/07 Discontinued Maxalt , As Needed 03/08/10 Discontinued Social History Social History Problem Response Recorded Date/Time Onset Date Status Chewing Tobacco Status No 12/27/2016 12:31am Not Applicable Not Applicable Hx Substance Use No 12/27/2016 12:31am Not Applicable Not Applicable Hx Alcohol Use Y ON OCCASION 12/27/2016 12:31am Not Applicable Not Applicable Has the pt used tobacco in the last 12 months No 04/02/2014 5:37pm Not Applicable Not Applicable Tobacco Usage none 04/02/2014 5:42pm Not Applicable Not Applicable Query Response Start Date Stop Date Smoking Status Former smoker Hospital Discharge Instructions No hospital discharge instructions. Plan of Care Discharge Date 12/27/16 12:54am Disposition 01 DISCHARGED HOME, SELF-CARE Condition at Discharge Stable Instructions/Education Provided Migraine Headache (ED) Prescriptions See Medication Section Referrals RUBA SULLIVAN Address: [address] [place] [address] [address] [place] [address] Additional Instructions/Education Rest in dark, quiet room. Avoid any migraine triggers. If your symptoms return or persist follow with your PCP or neurologist. Follow treatment plan. Care Plan and Goals Physician Care Plan Problem: Migraine Headache Goal: Follow up with primary care provider Instructions: Take medications and follow care plan as discussed/written Functional Status No functional status results. Allergies, Adverse Reactions, Alerts Allergen Type Severity Reaction Status Last Updated NKDA Allergy Unknown Active 12/27/16 Immunizations Query Response on File Recorded Date/Time Hx Influenza Vaccination No 05/11/15 7:45pm Hx Pneumococcal Vaccination No 05/11/15 7:45pm Hx Influenza Vaccination No 05/11/15 7:45pm Influenza Vaccine Hx NONE 08/02/16 12:53am Vital Signs Acute Vital Signs Vital Response Date/Time Temperature (Fahrenheit) 97.5 deg F (96.8 - 99.1) 12/26/2016 11:46pm Temperature (Calculated Celsius) 36.53968 degrees C (36.0 - 37.3) 12/26/2016 11:46pm Pulse Rate (adult) 86 bpm (60 - 100) 12/27/2016 12:30am Respiratory Rate 12 breaths/min (10 - 20) 12/26/2016 11:46pm O2 Sat by Pulse Oximetry 97 % (90 - 100) 12/27/2016 12:30am Blood Pressure 160/89 mm Hg 12/27/2016 12:30am Height (Feet) 5 feet 12/26/2016 11:46pm Height (Inches) 7.00 inches 12/26/2016 11:46pm Weight (Kilograms) 85.900 kg 12/26/2016 11:46pm Body Mass Index (BMI) 29.0 12/26/2016 11:46pm Results No known relevant diagnostic tests, laboratory data and/or discharge summary. Procedures No known history of procedures. Encounters Encounter Location Arrival/Admit Date Discharge/Depart Date Attending Provider Departed Emergency Room [facility] 12/26/16 11:26pm 12/27/16 12: 54am ALPHONSO SALGADO MD Recent Diagnosis
[2016-12-27 13:12] VITALS: TEMP 98; Ht 170.2 cm; Wt 85.3 kg
--- NOTE | 2016-12-27 13:25 | ERPDOC ---
Departure Disposition Decision Date: December 27, 2016 Disposition Decision Time: 15:28 (GERONIMO HOGAN APRN) Disposition: 01 DISCHARGED HOME, SELF-CARE Impression Impression (GERONIMO HOGAN APRN) Impression: Primary Impression: Migraine headache Condition: Improved Seen By: Mid-level only (GERONIMO HOGAN APRN) Referrals: RUBA SULLIVAN (Family) Patient Instructions: Migraine Headache (ED) Problems/Meds/Labs Reviewed?: Yes Medications reviewed and manag: Yes (GERONIMO HOGAN APRN) Additional Instructions: 1. Go home and rest. 2. Follow up with your doctor Follow up care ordered?: Yes Mental Status: Alert, Oriented (GERONIMO HOGAN APRN) Scripts Rizatriptan Benzoate (Maxalt) 10 Mg Tablet 1 TAB PO Q2HPRN Y for HEADACHE MDD 20 mg, #9 TAB 0 Refills Take 1 tab q2hr prn headache, up to 2 in 24 hours. Prov: GERONIMO HOGAN APRN 12/27/16 HPI - Headache General Chief Complaint: Headache Stated Complaint: MIGRAINE Time Seen by Provider: 13:13 Source: patient Exam Limitations: no limitations (GERONIMO HOGAN APRN) Time Seen by Provider: 13:13 (NISREEN PARISI DO) HPI - Headache Initial Comments Padmini is a 46 yr old female who comes to ER with cc: headache. Seen around midnight this am for same. Given Demerol 50 mg IM and Phenergan 25 mg IM, did not help. Symptoms did not improve at all after Demerol and Phenergan this am. Takes Botox every 3 months but doesn't last entire duration. Takes Maxalt 10 mg daily, two doses today. Topamax also taken daily. Taking "alot" of Aleve. Denies fevers. Denies neck pain. Denies recent illness or sinus symptoms. No vomiting although feels nauseated. Photo/phono phobia present. Denies any head trauma. Occurred At: home Pain Scale: Now & Worst: 10/10 Severity/Quality: severe Location: frontal Prior Headaches/Recent Trauma: no recent headache/trauma, chronic headaches Associated Symptoms: nausea/vomiting, DENIES: facial pain, fever/chills, stiff neck (GERONIMO HOGAN APRN) Allergies: Coded Allergies: No Known Allergies (Unverified , 12/27/16) Past History Past Medical History Hx Echocardiogram: No Neurological: headaches, migraines Musculoskeletal: neck pain (HOGAN,GERONIMO CUT OFF SAW GRADER) Surgical History General: appendix, other Reproductive/: hysterectomy (HOGAN,GERONIMO CUT OFF SAW GRADER) Family History Family PMH: FOUND: CT, cancer, migraines (HOGAN,GERONIMO CUT OFF SAW GRADER) Vaccines Hx Influenza Vaccination: No Hx Pneumococcal Vaccination: No (HOGAN,GERONIMO CUT OFF SAW GRADER) Social History Smoking Status: Never smoker Does patient use chewing tobac: No Second Hand Exposure: No Substance Use Type: does not use Alcohol Intake: none Sexuality: male partner Current Occupational Status: employed Current Occupation: [employer] (HOGAN,GERONIMO CUT OFF SAW GRADER) Review of Systems Constitutional Constitutional: see HPI (HOGAN,GERONIMO CUT OFF SAW GRADER) Eyes General: see HPI (HOGAN,GERONIMO CUT OFF SAW GRADER) ENMT Ears: see HPI (HOGAN,GERONIMO CUT OFF SAW GRADER) Pulmonary Respiratory: DENIES: cough (HOGAN,GERONIMO CUT OFF SAW GRADER) GI Upper Abdomen: nausea, DENIES: vomiting (HOGAN,GERONIMO CUT OFF SAW GRADER) Musculoskeletal General: DENIES: pain (HOGAN,GERONIMO CUT OFF SAW GRADER) Neurological General: headache (HOGAN,GERONIMO CUT OFF SAW GRADER) All other Systems All Other Systems: Reviewed and Negative (HOGAN,GERONIMO CUT OFF SAW GRADER) Physical Exam General General Nourishment: well nourished, well developed, appears stated age, no acute distress (HOGAN,GERONIMO CUT OFF SAW GRADER) Vitals and Pain First Documented Vital Signs Date Time Temp Pulse Resp B/P Pulse Ox O2 Delivery O2 Flow Rate FiO2 12/27/16 13:12 98.0 86 16 145/87 97 Room Air (NISREEN PARSII DO) Vitals and Pain Weight: Kilograms: Height (feet): 5 Height (inches): 7.00 Triage Pain Scale: (HOGAN,GERONIMO CUT OFF SAW GRADER) Eyes (brief) Eyes Brief: found: EOMI, PERRL, not found: scleral icterus (HOGAN,GERONIMO CUT OFF SAW GRADER) ENMT (brief) ENMT Brief: FOUND: mucosa moist, normal dentition, NOT FOUND: pharnyx erythema (HOGAN,GERONIMO CUT OFF SAW GRADER) Neck (brief) Neck: NOT FOUND: adenopathy, thyromegaly (HOGAN,GERONIMO CUT OFF SAW GRADER) Respiratory (brief) Respiratory: FOUND: clear all coates, equal bilaterally (GERONIMO HOGAN CUT OFF SAW GRADER) Cardiovascular (brief) Cardiac: FOUND: regular rate, regular rhythm, NOT FOUND: murmur (GERONIMO HOGAN CUT OFF SAW GRADER) Abdomen (brief) Abdominal Brief: FOUND: bowel normo active x4, soft, NOT FOUND: tender (GERONIMO HOGAN CUT OFF SAW GRADER) Lymphatic (brief) Lymphatic Brief: NOT FOUND: adenopathy, lymphedema (GERONIMO HOGAN CUT OFF SAW GRADER) Integumentary (brief) Integumentary Brief: FOUND: dry, pink, warm (GERONIMO HOGAN CUT OFF SAW GRADER) Neurologic (brief) Neurological Brief: FOUND: CN w/o gross def to obs, motor-no gross deficits, sensory-no gross deficits (GERONIMO HOGAN CUT OFF SAW GRADER) Psychiatric (brief) Psychiatric Brief: FOUND: alert, attentive, normal affect, oriented (GERONIMO HOGAN APRN) Differential Diagnoses Considering: Headache, Headache - Migraine, Headache - Tension/Muscle (GERONIMO HOGAN APRN) Progress Results/Orders Orders Procedure Category Date Status Time Normal Saline (Normal PHA 12/27/16 Complete Saline Iv) 13:30 Ketorolac (Toradol) PHA 12/27/16 Complete 13:30 Ondansetron Inj PHA 12/27/16 Complete (Zofran) 13:30 Ct Head W/O Contrast CT 12/27/16 Resulted 13:23 Diphenhydramine PHA 12/27/16 Complete (Benadryl) 14:45 Lorazepam (Ativan) PHA 12/27/16 Complete 14:45 (NISREEN PARISI DO) Medications Current ED Medications Sodium Chloride (Normal Saline IV) 1,000 ml @ 999 mls/hr Q1H1M ONCE IV Last administered on 12/27/16 14:10; Start 12/27/16 at 13:30; Stop 12/27/16 at 14:30 ; Status DC Ketorolac Tromethamine (Toradol) 30 mg O ONCE IV Last administered on 14:11; Start 12/27/16 at 13:30; Stop 12/27/16 at 13:31; Status DC Ondansetron HCl (Zofran) 4 mg O ONCE IV Last administered on 12/27/16 14:12; Start 12/27/16 at 13:30; Stop 12/27/16 at 13:31; Status DC Diphenhydramine HCl (Benadryl) 50 mg O ONCE IV Last administered on 12/27/16 14:53; Start 12/27/16 at 14:45; Stop 12/27/16 at 14:46; Status DC Lorazepam (Ativan) 1 mg O ONCE IV Last administered on 12/27/16 14:53; Start 12/27/16 at 14:45; Stop 12/27/16 at 14:46; Status DC (NISREEN PARISI DO) Progress Progress 1442 - Patient crying, asks for IV pole to be removed because it's too loud. Asks for "sleeping pill." Benadryl and Ativan ordered. 1528 - Patient feels better and able to go home. (GERONIMO HOGAN APRN) CT CT : CT: Head no contrast Interpretation: Normal, Reviewed Written Report (GERONIMO HOGAN APRN) GERONIMO HOGAN APRN December 27, 2016 13:25 NISREEN PARISI DO December 27, 2016 15:51
--- OUTSIDE RECORDS SUMMARY | 2016-12-27 13:25 | XMS REPORT | Continuity of Care Document ---
Author Author [facility] Organization [facility] Address Unknown Phone Unavailable Support Name Relationship Address Phone GIUSEPPE APARICIO MD Caregiver [address] [place] [address] [place] [address] NICOLASAASHLEIGH Caregiver [address] [place] [address] SEGUN PATEL Next Of Kin [address] [place] [address] Insurance Providers Payer Name Policy Number Subscriber Name Relationship CIGNA [id number] Padmini Patel 18 Self Advance Directives Directive [...] M1] 20 Mg PO BEDTIME 03/25/14 Active [[id number] M2] 25 Mg PO 03/25/14 Active Social [...] F (96.8 - 99.1) Temperature (Calculated Celsius) 36.13426 degrees C (36.0 - 37.3) Pulse Rate [...] Has specimen been collected/obtained? Y Urine Specific [place] December 27, 2012 3:33pm 1.010 L - [...] Report December 27, 2012 9:14pm REFERENCE LAB [id number] - Urine Methadone Screen December 27, 2012 [...] Encounters Encounter Location Date/Time Departed Emergency Room [facility] 03/25/14 2:08am Departed Emergency Room [facility] 02/13/14 7:57am Recent Diagnosis
--- OUTSIDE RECORDS SUMMARY | 2016-12-27 13:26 | XMS REPORT | Continuity of Care Document ---
Author Author [facility] Organization [facility] Address Unknown Phone Unavailable Support Name Relationship Address Phone ASHLEIGH BALDWIN Caregiver [address] [place], [place] [phone] KEAGAN PURDY MD Caregiver [address] [place] [address] [place] [phone] SEGUN PATEL Next Of Kin [address] [place] [address] Insurance Providers Payer Name Policy Number Subscriber Name Relationship MARISELANA [id number] Padmini Patel 18 Self Problems Medical Problems [...] F (96.8 - 99.1) Temperature (Calculated Celsius) 36.73245 degrees C (36.0 - 37.3) Pulse Rate [...] Has specimen been collected/obtained? Y Urine Specific [place] December 27, 2012 3:33pm 1.010 L - [...] Report December 27, 2012 9:14pm REFERENCE LAB [id number] - Urine Methadone Screen December 27, 2012 [...]
--- OUTSIDE RECORDS SUMMARY | 2016-12-27 13:26 | XMS REPORT | Continuity of Care Document ---
Author Author [facility] Organization [facility] Address Unknown Phone Unavailable Support Name Relationship Address Phone CUATE VASQUEZ DO Caregiver [address] [place] [address] CARLOS GUERRA MD Caregiver [address] [place] [address] [address] [facility] SEGUN PATEL Next Of Kin [address] [place], [place] [address] Insurance Providers Payer Name Policy Number Subscriber Name Relationship CIGNA [id number] Padmini Patel 18 Self Advance Directives Directive [...] M1] 20 Mg PO BEDTIME 03/25/14 Active [[id number] M2] 25 Mg PO 03/25/14 Active [Estrogen [...] F (96.8 - 99.1) Temperature (Calculated Celsius) 36.92071 degrees C (36.0 - 37.3) Temperature Source [...] Report April 02, 2014 4:35pm REFERENCE LAB [id number] - Lymphocytes # (Auto) April 03, 2014 [...] Has specimen been collected/obtained? Y Urine Specific [place] April 02, 2014 4:15pm 1.010 L - [...] procedures. Encounters Encounter Location Date/Time Discharged Inpatient [facility] 04/02/14 4:47pm Departed Emergency Room [facility] 03/25/14 2:08am Departed Emergency Room [facility] 02/13/14 7:57am Recent Diagnosis Migraine headache Suicidal ideation Overdose Suicidal ideation Suicide attempt by drug ingestion
--- OUTSIDE RECORDS SUMMARY | 2016-12-27 13:26 | XMS REPORT | Continuity of Care Document ---
Author Author [facility] Address Unknown Phone Unavailable Allergies Medications Problems Date Dx Coded Attending Type Code Diagnosis Diagnosed By 09/16/2016 ANAMIKA RAMOS G43.909 Migraine, unsp, not intractable, without status migrainosus Procedures Code Description [place] [address] THER/PROPH/DIAG INJ SC/IM ANAMIKA RAMOS 09/16/2016 37614 OFFICE/OUTPATIENT VISIT NEW ANAMIKA RAMOS 09/16/2016 J1885 KETOROLAC TROMETHAMINE INJ ANAMIKA RAMOS 09/16/2016 J2550 PROMETHAZINE HCL INJECTION ANAMIKA RAMOS 09/16/2016 Results Encounters ACCT No. Visit Date/Time Discharge Status Pt. Type Provider Facility Loc./Unit Complaint [id number] 09/16/2016 15:00:00 09/16/2016 15 :00:00 DIS Outpatient ANAMIKA RAMOS [facility] OTHER
--- OUTSIDE RECORDS SUMMARY | 2016-12-27 13:27 | XMS REPORT | Continuity of Care Document ---
Author Author [facility] Organization [facility] Address Unknown Phone Unavailable Support Name Relationship Address Phone KEAGAN PURDY MD Caregiver [address] [place] [address] [place] [phone] SEGUN PATEL Next Of Kin [address] [place] [address] Insurance Providers Payer Name Policy Number Subscriber Name Relationship VAMSHI [id number] Padmini Patel 18 Self Advance Directives Directive Response Recorded Date/Time Advanced Directives Type None 05/30/14 9:22pm Chief Complaint and Reason for Visit Chief Complaint Accidental Overdose Reason for Visit [id number] Suicidal ideation Problems Medical Problems Problem Onset [...] Benzoate 10 Mg PO NEEDED 02/13/14 Active [[id number] M2] 25 Mg PO 03/25/14 Active Naproxen [...] of your legs. 3.During office hours, call [phone] 4. After hours, please call [facility] at [phone], and have the refrigerating machine operator page your Surgeon IN THE EVENT OF AN EMERGENCY, seek medical care at the nearest Emergency Room Condition at time of discharge: Good Plan of Care Discharge Date 04/03/14 5:00pm Disposition 02 TO [facility] Condition at Discharge Stable Prescriptions See Medications [...] F (96.8 - 99.1) Temperature (Calculated Celsius) 36.04255 degrees C (36.0 - 37.3) Pulse Rate [...] Has specimen been collected/obtained? Y Urine Specific [place] April 02, 2014 4:15pm 1.010 L - [...] Report April 02, 2014 4:35pm REFERENCE LAB [id number] - Turbidity April 03, 2014 4:20am < [...] Encounters Encounter Location Date/Time Registered Emergency Room [facility] 05/30/14 7:29pm Discharged Inpatient [facility] 04/02/14 4:47pm Departed Emergency Room [facility] 03/25/14 2:08am Recent Diagnosis
[2016-12-27] MEDS ORDERED: ONDANSETRON 4mg/2ml INJECTION IV ONE (13:30)
[2016-12-27] MEDS ORDERED: NORMAL SALINE 1,000 ML IV ONE (13:30)
[2016-12-27] MEDS ORDERED: KETOROLAC 30mg/ml INJECTION IV ONE (13:30)
[2016-12-27] MEDS ORDERED: TOPI25TA64 PO (13:33)
--- NOTE | 2016-12-27 13:35 | NUR ---
CT TRANSPORTED TO CT VIA STRETCHER PER FINANCIAL SYSTEMS MANAGER.
--- NOTE | 2016-12-27 13:57 | DI ---
Indication: ITS.REASON: HEADACHE PROCEDURE: CT HEAD W/O CONTRAST: Encounter: Initial Comparison: August 02, 2016 Technique: Axial CT images through the head were performed without contrast. Iterative Reconstruction dose reducing technique was utilized. FINDINGS: The ventricles are of normal size, shape, and configuration for the patient's age. There is no evidence of acute intracranial hemorrhage, midline displacement, or mass effect. The CT attenuation of the brain parenchyma is normal within the cerebellum, brain stem, and cerebral hemispheres. The tympanic cavities and mastoid air cells are free of appreciable disease. There are no definite fractures of the skull base, calvarium, or visualized portion of the midface. IMPRESSION: No CT evidence of acute intracranial abnormality. .
[2016-12-27] MEDS ORDERED: DiphenhydrAMINE 50 MG/ML INJECTION IV ONE (14:45)
[2016-12-27] MEDS ORDERED: LORAZEPAM 2 MG/ML INJECTION IV ONE (14:45)
[2016-12-27] MEDS ORDERED: RIZA10TA24 PO (15:43)
[2016-12-27 15:45] VITALS: BP 128/80; PULSE 72; RESP 18; O2SAT 99
== END 2016-12-27 15:45 | disposition home or self-care (01) ==
LOC: ED 13:01
DX: G43.909 Migraine, unspecified, not intractable, without status migrainosus (principal)
CPT/HCPCS: 70450; 96361; 96374; 96375; 99284; J1200; J1885; J2060; J2405; J7030